=== PATIENT | male | born 1950 | race Caucasian/White ===

== ENCOUNTER 2016-06-27 19:15 | Emergency (ER) | payer MEDICARE, BC ==
--- NOTE | 2016-06-27 20:28 | ER Document Report ---
ED Medical Screen (RME) - General Stated Complaint: RIGHT EAR PAIN Notes: 65 yo male c/o pain to right ear pain, draining blood. seen by PCM today, + flu. taking Tamiflu. low grade fever Physical Exam - Vital signs Vitals: Temp Pulse Resp BP Pulse Ox 99.8 F 81 16 185/84 H 94 06/27/16 20:16 06/27/16 20:16 06/27/16 20:16 06/27/16 20:16 06/27/16 20:16 Course - Vital Signs Vital signs: Temp Pulse Resp BP Pulse Ox 99.8 F 84 16 170/78 H 94 06/27/16 20:16 06/27/16 20:20 06/27/16 20:16 06/27/16 20:20 06/27/16 20:16
[2016-06-28] MEDS ORDERED: HYDROCODONE/ACETAMINOPHEN 5-325 MG 6 TAB/DSPK PO PRN (00:49)
[2016-06-28] MEDS ORDERED: AMOXICILLIN TRIHYDRATE 500 MG CAPSULE PO ONE (00:49)
[2016-06-28] MEDS ORDERED: LIDOCAINE 2% JELLY 30 ML TUBE TOP ONE (00:49)
[2016-06-28] MEDS ORDERED: HYDROCODONE/ACETAMINOPHEN 5-325 MG TABLET PO ONE (00:49)
[2016-06-28] MEDS ORDERED: IBUPROFEN 600 MG TABLET PO ONE (00:54)
--- NOTE | 2016-06-28 00:57 | ER Document Report ---
ED General - General Chief Complaint: Ear Pain Stated Complaint: RIGHT EAR PAIN Notes: Patient is a 65-year-old male who presents with acute onset of severe right ear pain earlier this morning. States that he has been diagnosed with the flu several days ago and felt fullness in his bilateral ears for the past 2-3 days. However, he states he was drying his ears earlier today after getting out of the shower and experienced an acute onset of severe pain in the right ear. He has had blood dripping from the ear since that time. He saw his primary care physician this morning who "could not see anything" and was sent home. Since that time he states he has had a severe, constant, sharp pain in the ear. Nothing improves or worsens the pain. He denies any history of similar symptoms in the past. Denies any facial pain, vomiting, headache, neck pain, altered mental status. He has not had a fever. - Related Data Allergies/Adverse Reactions: No Known Allergies Allergy (Unverified 06/27/16 20:30) Past Medical History - General Information source: Patient - Social History Smoking Status: Never Smoker Frequency of alcohol use: Occasional Drug Abuse: None Lives with: Family Family History: Reviewed & Not Pertinent Patient has suicidal ideation: No Patient has homicidal ideation: No Renal/ Medical History: Denies: Hx Peritoneal Dialysis Review of Systems - Review of Systems Notes: Constitutional: Negative for fever. HENT: Positive for right ear pain and blood draining from the right ear Eyes: Negative for visual changes. Cardiovascular: Negative for chest pain. Respiratory: Negative for shortness of breath. Gastrointestinal: Negative for abdominal pain, vomiting or diarrhea. Genitourinary: Negative for dysuria. Musculoskeletal: Negative for back pain. Skin: Negative for rash. Neurological: Negative for headaches, weakness or numbness. 10 point ROS negative except as marked above and in HPI. Physical Exam - Vital signs Vitals: Temp Pulse Resp BP Pulse Ox 99.8 F 81 16 185/84 H 94 06/27/16 20:16 06/27/16 20:16 06/27/16 20:16 06/27/16 20:16 06/27/16 20:16 Interpretation: Normal Notes: PHYSICAL EXAMINATION: GENERAL: Well-appearing, well-nourished and in no acute distress. HEAD: Atraumatic, normocephalic. EYES: Pupils equal round and reactive to light, extraocular movements intact, sclera anicteric, conjunctiva are normal. ENT: There is blood coming out of the middle ear canal of the right ear. The tympanic membrane is perforated. NECK: Normal range of motion, supple without lymphadenopathy LUNGS: Breath sounds clear to auscultation bilaterally and equal. No wheezes rales or rhonchi. HEART: Regular rate and rhythm without murmurs ABDOMEN: Soft, nontender, normoactive bowel sounds. No guarding, no rebound. No masses appreciated. EXTREMITIES: Normal range of motion, no pitting or edema. No cyanosis. NEUROLOGICAL: No focal neurological deficits. Moves all extremities spontaneously and on command. PSYCH: Normal mood, normal affect. SKIN: Warm, Dry, normal turgor, no rashes or lesions noted. Course - Re-evaluation Re-evalutation: 06/28/16 00:57 Patient presents with perforation right tympanic membrane. Likely secondary to his recent diagnosis of influenza with a superimposed otitis media. No evidence of mastoiditis. Otherwise well in appearance. He was started on ofloxacin ear drops, amoxicillin, and pain control. He has been referred to ENT.At this time will discharge with return precautions and follow-up recommendations. Verbal discharge instructions given a the bedside and opportunity for questions given. Medication warnings reviewed. Patient is in agreement with this plan and has verbalized understanding of return precautions and the need for primary care follow-up in the next 24-72 hours. - Vital Signs Vital signs: Temp Pulse Resp BP Pulse Ox 98.6 F 86 14 164/78 H 93 06/28/16 01:22 06/28/16 01:22 06/28/16 01:22 06/28/16 01:22 06/28/16 01:22 Discharge - Discharge Clinical Impression: Perforation of tympanic membrane Qualifiers: Laterality: right Qualified Code(s): H72.91 - Unspecified perforation of tympanic membrane, right ear Condition: Good Disposition: HOME, SELF-CARE Additional Instructions: You have a perforation of your right eardrum. Take the amoxicillin as prescribed. Please also put the ofloxacin eardrops in the right ear twice a day. For pain: Take ibuprofen 600 mg every 6 hours. You can also use the topical lidocaine jelly that you were sent home with. For pain not controlled by ibuprofen you have sent home with a small amount of a stronger pain medication called Nallely. Please follow-up with your primary care doctor in the next several days. Return if you have fever greater than 100.4F, you develop persistent vomiting, have worsening pain, or any other symptoms that are worrisome to you. Please also follow up with the pedigree researcher included in your paperwork. Prescriptions: Amoxicillin 1 tab PO TID #30 tab Ofloxacin [Floxin] 0.5 ml OT BID #7 ml Referrals: LAURIE GALVAN DO [Primary Care Provider] - Follow up in 3-5 days HO MALDONADO MD [ACTIVE STAFF] - Follow up in 3-5 days
[2016-06-28] MEDS ORDERED: LIDOCAINE 2% JELLY 30 ML TUBE ONE (01:08)
[2016-06-28 01:23] VITALS: BP 164/78
== END 2016-06-28 01:30 | disposition home or self-care (01) ==
LOC: ER 19:15
DX: H72.91 Unspecified perforation of tympanic membrane, right ear (principal); H92.01 Otalgia, right ear
CPT/HCPCS: 99282; A9270 ×4